=== PATIENT | male | born 1985 | race Caucasian/White ===

== ENCOUNTER 2025-10-14 23:43 | Emergency (ER) | payer SELFPAY ==
[2025-10-15] MEDS ORDERED: Dexamethasone 10 MG/ML VIAL ONE (01:33)
[2025-10-15] MEDS ORDERED: Ketorolac Tromethamine 30 MG (1 mL) VIAL ONE (01:33)
== END 2025-10-15 01:54 | disposition home or self-care (01) ==
LOC: ERS 23:43
DX: M25.552 Pain in left hip (principal); F41.9 Anxiety disorder, unspecified; Z76.0 Encounter for issue of repeat prescription; I25.2 Old myocardial infarction
CPT/HCPCS: 96372; 99283; J1100; J1885